=== PATIENT | female | born 1970 | race Caucasian/White ===

== ENCOUNTER 2018-07-01 22:13 | Emergency (ER) | payer BC ==
[2018-07-01] MEDS ORDERED: NS 0.9% 1000 ML* 2,000 ML IV ONE (23:17)
[2018-07-01] MEDS ORDERED: Ketorolac INJ* 30 MG/ML 1 ML VIAL IV PUSH ONE (23:17)
[2018-07-01] MEDS ORDERED: Metoclopramide IV* 5 MG/ML 2 ML VIAL IV SLOW PU ONE (23:18)
--- NOTE | 2018-07-01 23:24 | ED ---
Back Pain - HPI Summary HPI Summary: This is chele Pham documenting for Dr. Bree Bhandari MD. Pt is a 47 y/o F who presents to ED c/o bilateral flank pain since 20:15 tonight. Rates her pain intensity as 5/10 in severity and describes it as aching. Notes urinary symptoms that started 3 days ago and nausea. Denies fever or vomiting. Says that she rarely ever gets UTIs. - History of Current Complaint Chief Complaint: EDFlankPain Stated Complaint: BACK PAIN Time Seen by Provider: 07/01/18 22:42 Hx Obtained From: Patient Onset/Duration: Lasting Hours, Still Present Onset/Duration: Started Hours Ago, Still Present Severity Currently: Moderate Pain Intensity: 5 Pain Scale Used: 0-10 Numeric Character: Aching Associated Signs And Symptoms: Positive: Flank Pain, Other - NEGATIVE: fever. Negative: Fever - Allergies/Home Medications Allergies/Adverse Reactions: Allergies Allergy/AdvReac Type Severity Reaction Status Date / Time No Known Allergies Allergy Verified 07/01/18 22:23 PMH/Surg Hx/FS Hx/Imm Hx Endocrine/Hematology History: Denies: Hx Diabetes Cardiovascular History: Denies: Hx Hypertension - Cancer History Hx Chemotherapy: No Hx Radiation Therapy: No Infectious Disease History: No Infectious Disease History: Denies: Traveled Outside the [place] in Last 30 Days - Family History Known Family History: Negative: Hypertension, Diabetes - Social History Alcohol Use: Occasionally Substance Use Type: Reports: None Smoking Status (MU): Never Smoked Tobacco Review of Systems Negative: Fever Negative: Vomiting Positive: flank pain All Other Systems Reviewed And Are Negative: Yes Physical Exam - Summary Physical Exam Summary: VITAL SIGNS: Reviewed. GENERAL: Patient is a well-developed and nourished female who is lying comfortable in the stretcher. Patient is not in any acute respiratory distress. HEAD AND FACE: No signs of trauma. No ecchymosis, hematomas or skull depressions. No sinus tenderness. EYES: PERRLA, EOMI x 2, No injected conjunctiva, no nystagmus. EARS: Hearing grossly intact. Ear canals and tympanic membranes are within normal limits. MOUTH: Oropharynx within normal limits. NECK: Supple, trachea is midline, no adenopathy, no JVD, no carotid bruit, no c- spine tenderness, neck with full ROM. CHEST: Symmetric, no tenderness at palpation LUNGS: Clear to auscultation bilaterally. No wheezing or crackles. CVS: Regular rate and rhythm, S1 and S2 present, no murmurs or gallops appreciated. ABDOMEN: Soft, bilateral lower quadrant tenderness. Bilateral CVA tenderness, right more than left. No signs of distention. No rebound no guarding, and no masses palpated. Bowel sounds are normal. EXTREMITIES: FROM in all major joints, no edema, no cyanosis or clubbing. NEURO: Alert and oriented x 3. No acute neurological deficits. Speech is normal and follows commands. SKIN: Dry and warm Triage Information Reviewed: Yes Vital Signs On Initial Exam: Initial Vitals Temp Pulse Resp BP Pulse Ox 97.9 F 73 18 135/81 98 07/01/18 22:20 07/01/18 22:20 07/01/18 22:20 07/01/18 22:20 07/01/18 22:20 Vital Signs Reviewed: Yes Diagnostics - Vital Signs Vital Signs Temp Pulse Resp BP Pulse Ox 07/01/18 22:20 97.9 F 73 18 135/81 98 - Laboratory Result Diagrams: 07/01/18 23:41 07/01/18 23:41 Lab Statement: Any lab studies that have been ordered have been reviewed, and results considered in the medical decision making process. - CT CT Abd/Pel CT Interpretation Completed By: Radiologist - IMPRESSION: 1. No acute findings in the abdomen or pelvis. 2. No stones in the kidneys, ureters, or urinary bladder. No hydronephrosis or hydroureter. 3. Small fat containing umbilical hernia. 4. 2.2 cm left ovarian cyst. ED Physician reviewed this report. Back Pain Course/Dx - Course Course Of Treatment: Pt is a 47 y/o F who presents to ED c/o bilateral flank pain since 20:15 tonight. Rates her pain intensity as 5/10 in severity and describes it as aching. Notes urinary symptoms that started 3 days ago and nausea. Denies fever or vomiting. PMHx of UTI. Physical exam revealed bilateral lower quadrant tenderness and bilateral CVA tenderness, right more than left. CT Abd/Pel showed no acute findings in the abdomen or pelvis, no stones in the kidneys, ureters, or urinary bladder, no hydronephrosis or hydroureter. There was small fat containing umbilical hernia and 2.2 cm left ovarian cyst. ED Physician reviewed this report and agrees. In the ED course pt was given Toradol , Reglan, and fluids. Pt is diagnosed with pyelonephritis and discharged home. Pt is agreeable with this plan. - Diagnoses Provider Diagnoses: Pyelonephritis Discharge - Sign-Out/Discharge Documenting (check all that apply): Patient Departure - Discharge - Discharge Plan Condition: Stable Disposition: HOME Prescriptions: Ibuprofen TAB* [Motrin TAB* 800 MG] 800 mg PO Q6H PRN #30 tab PRN Reason: Pain Levofloxacin TAB* [Levaquin TAB*] 500 mg PO DAILY #10 tab Phenazopyridine TAB* [Pyridium 100 mg TAB*] 100 mg PO TID PRN #7 tab PRN Reason: Pain Patient Education Materials: Kidney Infection (ED) Referrals: Sanjay Bird MD [Primary Care Provider] - 2 Days Additional Instructions: RETURN TO ED FOR ANY NEW OR WORSENING SYMPTOMS.
[2018-07-01 23:55] LABS: ABS Basophils 0.1 10^3/ul (0-0.2); ABS Eosinophils 0.4 10^3/ul (0-0.6); ABS Lymphocytes 2.5 10^3/ul (1.0-4.8); ABS Nucleated RBC 0 10^3/ul; Hematocrit 40 % (35-47); Hemoglobin 13.3 g/dl (12.0-16.0); Lymphocyte % 17.9 % (25-47); Mean Corpuscular HGB Conc 34 g/dl (31-36); Mean Corpuscular Hemoglobin 29 pg (27-31); Mean Corpuscular Volume 87 fL (80-97); Nucleated Red Blood Cells % 0; Platelet Count 252 10^3/ul (150-450); Red Blood Count 4.58 10^6/ul (4.00-5.40); Red Cell Distribution Width 14 % (10.5-15); White Blood Count 13.9 10^3/ul (3.5-10.8)
[2018-07-01 23:57] LABS: Urine Appearance Cloudy; Urine Blood 3+ (Negative); Urine Color Yellow; Urine Ketones Negative (Negative); Urine Protein 2+(100 mg/dL) (Negative); Urine Red Blood Cell 3+(>10/hpf) (Absent); Urine Specific Gravity 1.013 (1.010-1.030); Urine Urobilinogen Negative (Negative); Urine White Blood Cell 3+(>20/hpf) (Absent)
[2018-07-02] MEDS ORDERED: Levofloxacin 500 MG IVPREMIX(* 500 MG/100 ML BAG IVPB ONE (00:01)
[2018-07-02 00:06] LABS: EGFR Non-African American 49.4 (>60)
[2018-07-02 01:21] VITALS: BP 118/70
--- NOTE | 2018-07-02 07:37 | RAD ---
Indication: Flank pain bilaterally. CT of the abdomen and pelvis was performed without oral or IV contrast administration. Coronal and sagittal reconstructed images were obtained. The lung bases demonstrate no pleural fluid, nodules or masses. Heart is of normal size without evidence of pericardial effusion. Liver is normal in size. No focal lesions or intrahepatic ductal dilatation is noted. The pancreas demonstrates no mass or pancreatic duct dilatation. The common duct is not dilated. The gallbladder demonstrates no calcified gallstones, pericholecystic fluid or wall thickening. No adrenal lesions are noted. The kidneys demonstrate no evidence of renal calculus or hydronephrosis. No hydroureter is noted. CT of the pelvis demonstrates no retroperitoneal or pelvic lymphadenopathy. No dilated loops of bowel are noted. The colon is filled with stool. The uterus and ovaries are unremarkable aside from a 2.2 cm left ovarian cyst.. No hernias are noted. The bony structures are otherwise unremarkable. There is a small periumbilical hernia containing fat. IMPRESSION: No abnormal masses or fluid collections are identified. No obstructive uropathy is noted. 2.2 cm left ovarian cyst is noted.
== END 2018-07-02 01:19 | disposition home or self-care (01) ==
LOC: ED 22:13
DX: N10 Acute pyelonephritis (principal); R11.0 Nausea; N83.202 Unspecified ovarian cyst, left side
CPT/HCPCS: 36415; 74176; 80053; 81003; 81015; 83605; 85025; 86140; 87040; 87077; 87086; 96374; 96375; 99282; J1885; J1956; J2765